=== PATIENT | female | born 1970 | race Caucasian/White ===

== ENCOUNTER → 2020-09-25 | Day surgery (SDC) | payer MEDICARE, OTHER ==
[~2020-09-25] VITALS: Ht 167.6 cm; Wt 104.3 kg
[~2020-09-25] MED LIST: ASPIRIN EC81 MG PO; ATARAX25 MG PO; BUPROPION XL150 MG PO; CENTRUM ADULTS1 EACH PO; CIPRO500 MG PO; FEOSOL325 MG PO; FISH OIL 1,0001 EACH PO; FLUOXETINE HCL10 MG PO; GEODON40 MG PO; GLUCOTROL XL5 MG PO; KLONOPIN1 MG PO; LASIX20 MG PO; LATUDA80 MG PO; LEVOTHYROXINE25 MCG PO; LIDOCAINE30 G1 TOP; LIOTHYRONINE SO5 MCG PO; LIPITOR80 MG PO; LITHIUM CARBON150 MG PO; LITHIUM300 MG PO; MAG-OXIDE 400M400 MG PO; MEDROL 4MG DOSEP4 MG PO; METFORMIN HCL500 MG PO; MILK OF MA400 MG/5 M PO; NEURONTIN300 MG PO; NITROQUIK SL0.4 MG SL; OMEPRAZOLE 20MG20 MG PO; ONDANSETRON HCL4 MG PO; OXY-IR 5MG5 MG PO; PAMELOR50 MG PO; PERCOCET 5-3251 EACH PO; PRINIVIL10 MG PO; PROVERA10 MG PO; RANOLAZINE ER500 MG PO; RIZATRIPTAN10 MG PO; TRAMADOL HCL50 MG PO; TRAZODONE 150M150 MG PO; ULTRA-LIGHT RO1 EACH XX; VICTOZA 3-0.6 MG/0.1 IJ; VITAMIN B-121000 MC1 PO; VITAMIN D1000 UNI1 PO; XARELTO10 MG PO; ZANTAC150 MG PO; ZONISAMIDE50 MG PO
[2020-09-25 10:11] LABS: HCG (URINE) SCREEN NEGATIVE (NEGATIVE)
[2020-09-25 10:35] LABS: HCT 35.2 % (37.0-47.0); HGB 11.1 g/dl (12.5-16.0); MCH 32.3 pg (25.0-31.0); MCHC 31.5 g/dL (32.0-36.0); MCV 102.3 fL (78.0-100.0); RBC 3.44 M/uL (4.20-5.40); RDW 13.3 % (11.5-14.0); WBC 8.8 K/uL (4.0-10.5)
[2020-09-25 11:03] LABS: ALBUMIN 3.1 g/dL (3.4-5.0); BILIRUBIN - TOTAL 0.4 mg/dL (0.2-1.0); GLOBULIN (CALCULATION) 3.1 g/dL; POTASSIUM 4.9 mmol/L (3.5-5.1); TOTAL PROTEIN 6.2 g/dL (6.4-8.2)
== END | disposition home or self-care (01) ==
LOC: FAS 09:42
PROVIDERS: Orthopaedic Surgery
DX: G56.03 Carpal tunnel syndrome, bilateral upper limbs (principal); G56.23 Lesion of ulnar nerve, bilateral upper limbs; E11.9 Type 2 diabetes mellitus without complications; I10 Essential (primary) hypertension; E07.9 Disorder of thyroid, unspecified; R00.1 Bradycardia, unspecified; F31.9 Bipolar disorder, unspecified; F41.9 Anxiety disorder, unspecified; E03.9 Hypothyroidism, unspecified; I25.2 Old myocardial infarction
CPT/HCPCS: 36415; 71045; 80053; 84703; 93005; J0690; J1100; J1170; J1885; J2250; J2405; J2704; J3010; J7120